=== PATIENT | female | born 1980 | race Caucasian/White ===

== ENCOUNTER 2022-11-10 10:48 | Outpatient (CLI) | payer OTHER, SELFPAY ==
--- NOTE | 2022-11-10 11:30 | NEURO_ITS ---
Impression: # Complains of right hand discomfort and numbness. # No electrical evidence of Carpal Tunnel Syndrome or ulnar neuropathy at this time. # Normal needle/EMG exam. # Clinical correlation recommended. Nerve Conduction Studies Anti Sensory Summary Table Stim Site NR Peak (ms) P-T Amp (?V) Site1 Site2 Delta-P (ms) Dist (cm) Benitez (m/s) Right Median Anti Sensory (2-3nd Digit) Wrist 2.9 65.6 Wrist 2-3nd Digit 2.9 14.0 48 Wrist 2.9 77.4 Wrist 2-3nd Digit 2.9 14.0 48 Right Radial Anti Sensory (Base 1st Digit) Wrist 2.0 47.5 Wrist Base 1st Digit 2.0 0.0 Right Ulnar Anti Sensory (5th Digit) Wrist 2.4 73.4 Wrist 5th Digit 2.4 14.0 58 Motor Summary Table Stim Site NR Onset (ms) O-P Amp (mV) Site1 Site2 Delta-0 (ms) Dist (cm) Benitez (m/s) Right Median Motor (Abd Poll Brev) Wrist 3.4 3.4 Elbow Wrist 4.6 27.0 59 Elbow 8.0 2.8 Right Ulnar Motor (Abd Dig Minimi) Wrist 2.9 8.0 A Elbow Wrist 5.0 29.0 58 A Elbow 7.9 7.0 F Wave Studies NR F-Lat (ms) L-R F-Lat (ms) Right Median (Mrkrs) (Abd Poll Brev) 26.37 Right Ulnar (Mrkrs) (Abd Dig Min) 25.73 EMG Side Muscle Nerve Root Ins Act Fibs Amp Dur Recrt Comment Right 1stDorInt Ulnar C8-T1 Nml Nml Nml Nml Nml Right Ext Indicis Radial (Post Int) C7-8 Nml Nml Nml Nml Nml Right Ext Digitorum Radial (Post Int) C7-8 Nml Nml Nml Nml Nml Right BrachioRad Radial C5-6 Nml Nml Nml Nml Nml Right PronatorTeres Median C6-7 Nml Nml Nml Nml Nml Right Abd Poll Brev Median C8-T1 Nml Nml Nml Nml Nml MTDD
== END 2022-11-10 10:49 | disposition home or self-care (01) ==
LOC: ANHNEURO 10:49
PROVIDERS: PCP Internal Medicine; Visit Provider Internal Medicine
DX: R20.0 Anesthesia of skin (principal)
CPT/HCPCS: 95886; 95909

== ENCOUNTER 2024-04-10 10:34 | Outpatient (CLI) | payer OTHER, SELFPAY ==
--- NOTE | ~2024-04-10 | XR_ITS ---
Right Knee Technique: AP, lateral, and sunrise views were obtained. Clinical History: Pain Findings: No fracture or dislocation is seen. Osseous alignment is anatomic. Joint spaces are preserv ed without degenerative or erosive change. Soft tissues are unremarkable. No joint effusion is seen. Impression: Unremarkable right knee radiographs. Reviewed, dictated and finalized at location . [employer] Impression: Unremarkable right knee radiographs.
== END 2024-04-10 10:35 | disposition home or self-care (01) ==
LOC: GOSHIMG 10:35
PROVIDERS: PCP Internal Medicine; Visit Provider Internal Medicine
DX: M25.561 Pain in right knee (principal)
CPT/HCPCS: 73562